=== PATIENT | male | born 1985 ===

== ENCOUNTER 2023-01-28 11:12 | Day surgery (SDC) | payer BC ==
[~2023-01-28 11:12] MED LIST: Lactated Ringers 1,000 ML IV SCH
[2023-01-28] MEDS ORDERED: Lidocaine 2% 5 ML SDV ONE (11:57)
[2023-01-28] MEDS ORDERED: Propofol 200 MG/20 ML SDV ONE (12:18)
[2023-01-28] MEDS ORDERED: Lactated Ringers 1,000 ML IV SCH (13:00)
== END 2023-01-28 13:53 | disposition home or self-care (01) ==
LOC: MW.SDS 11:12
PROVIDERS: ATTEND Surgery
DX: K20.90 Esophagitis, unspecified without bleeding (principal); K29.70 Gastritis, unspecified, without bleeding; K29.80 Duodenitis without bleeding; K21.9 Gastro-esophageal reflux disease without esophagitis; I10 Essential (primary) hypertension; E66.9 Obesity, unspecified; Z68.30 Body mass index [BMI] 30.0-30.9, adult; F17.290 Nicotine dependence, other tobacco product, uncomplicated; Z79.899 Other long term (current) drug therapy
CPT/HCPCS: 43239; J2704; J7120; 00731; J3490

== ENCOUNTER 2023-08-31 23:24 | Emergency (ER) | payer BC ==
[2023-08-31] MEDS: Acetaminophen/HYDROcodone 325-10 MG Tab PO ONE (23:56)
[2023-08-31] MEDS: Diazepam 5 MG Tab PO ONE (23:56)
== END 2023-09-01 01:18 | disposition home or self-care (01) ==
LOC: MW.ED 23:24
DX: M62.830 Muscle spasm of back (principal); I10 Essential (primary) hypertension; K21.9 Gastro-esophageal reflux disease without esophagitis; E66.9 Obesity, unspecified; Z79.899 Other long term (current) drug therapy; Z88.8 Allergy status to other drugs, medicaments and biological substances
CPT/HCPCS: 99283; A9270